=== PATIENT | male | born 1960 | race Caucasian/White ===

== ENCOUNTER 2023-11-04 13:11 | Emergency (ER) | payer BC ==
[2023-11-04 14:19] LABS: INR 1.06; PROTHROMBIN TIME 11.3 SECONDS (9.7-12.0)
[2023-11-04 14:22] LABS: BASOPHILS PERCENT AUTO 0.2 % (0.0-1.0); HEMATOCRIT 44.1 % (42.0-52.0); HEMOGLOBIN 14.8 gm/dl (14.0-18.0); IMMATURE GRAN ABSOLUTE AUTO 0.05 K/mm3 (0.00-0.05); IMMATURE GRAN PERCENT AUTO 0.4 % (0.0-0.4); LYMPHOCYTES ABSOLUTE AUTO 1.2 K/mm3 (1.0-4.8); LYMPHOCYTES PERCENT AUTO 9.4 % (24.0-44.0); MEAN CORPUSCULAR HEMOGLOBIN 30.3 pg (28.0-32.0); MEAN CORPUSCULAR HGB CONC 33.6 g/dl (32.0-36.0); MEAN CORPUSCULAR VOLUME 90.2 fl (83.0-99.0); MEAN PLATELET VOLUME 8.9 fl (9.4-12.4); MONOCYTES ABSOLUTE AUTO 0.5 K/mm3 (0.0-0.8); MONOCYTES PERCENT AUTO 4.1 % (0.0-8.0); NEUTROPHILS ABSOLUTE AUTO 10.6 K/mm3 (1.8-7.7); NEUTROPHILS PERCENT AUTO 85.9 % (41.0-71.0); PLATELET COUNT,PLT 357 K/mm3 (150-400); RED BLOOD CELL COUNT 4.89 M/mm3 (4.52-5.90); WHITE BLOOD CELL COUNT,WBC 12.29 K/mm3 (3.9-11.3)
[2023-11-04 14:30] LABS: APPEARANCE,URINE CLEAR (Clear); BILIRUBIN,URINE NEGATIVE (Negative); COLOR,URINE YELLOW (Yellow); GLUCOSE,URINE 2+ (Negative); KETONES,URINE 1+ (Negative); LEUKOCYTE ESTERASE,URINE NEGATIVE (Negative); NITRITE,URINE NEGATIVE (Negative); OCCULT BLOOD,URINE NEGATIVE (Negative); PROTEIN,URINE 2+ (Negative); UROBILINOGEN,URINE 0.2 (0.2-1.0)
[2023-11-04 14:33] LABS: LACTIC ACID 1.5 mmol/L (0.4-2.0)
[2023-11-04 14:34] LABS: A/G RATIO 1.2 (1-2); ALBUMIN 3.7 g/dl (3.4-5.0); ANION GAP 16.1 (5-15); BILIRUBIN TOTAL 0.9 mg/dL (0.2-1.0); BUN/CREATININE RATIO 18.2 (14-18); CALCIUM 8.9 mg/dL (8.5-10.1); CREATININE 1.1 mg/dL (0.7-1.3); EST CRCL DRUG DOSING (CG) 65.93 mL/min; MAGNESIUM 1.8 mg/dL (1.8-2.4); POTASSIUM,K 4.1 mEq/L (3.5-5.1); PROTEIN TOTAL,TP 6.8 g/dl (6.4-8.2)
[2023-11-04 15:03] LABS: D-DIMER QUANTITATIVE 0.91 mg/L (0.19-0.50)
[2023-11-04 15:17] LABS: BACTERIA,URINE FEW /hpf (FEW); MUCUS,URINE FEW /hpf (FEW); RBC,URINE 0-5 /hpf (0-5); SQUAMOUS EPITHELIAL CELLS,UR 0-5 /hpf (0-5); WBC,URINE 0-5 /hpf (0-5)
[2023-11-04] MEDS: Sodium Chloride 0.9% 45 ML IV SCH (15:45)
[2023-11-04] MEDS: Sodium Chloride 0.9% 10 ML Syringe FLUSH PRN (15:45)
[2023-11-04] MEDS: Iopamidol 755 Mg/ML 100 ML Bottle IVPUSH ONE (15:45)
[2023-11-04] MEDS: Furosemide 40 MG/4 ML VIAL IVPUSH ONE (15:58)
[2023-11-04] MEDS: Diltiazem 25 MG/5 ML SDV IVPUSH ONE (16:19)
[2023-11-04] MEDS: Diltiazem 125 MG in Sodium Chloride 0.9% 100 ML IV SCH (16:56)
[2023-11-04] MEDS: cefTRIAXone 1 GM in Sodium Chloride 0.9% 100 ML IV ONE (16:59)
[2023-11-04] MEDS: Sodium Chloride 0.9% 1,000 ML IV ONE (17:28)
[2023-11-04 20:34] VITALS: BP 143/88; PULSE 99
== END 2023-11-04 20:30 ==
LOC: JD.ED 13:11
DX: J18.9 Pneumonia, unspecified organism (principal); I48.91 Unspecified atrial fibrillation; I11.0 Hypertensive heart disease with heart failure; I50.9 Heart failure, unspecified; E78.5 Hyperlipidemia, unspecified; Z87.891 Personal history of nicotine dependence; E11.9 Type 2 diabetes mellitus without complications; Z79.899 Other long term (current) drug therapy; Z79.84 Long term (current) use of oral hypoglycemic drugs; Z88.5 Allergy status to narcotic agent; Z86.16 Personal history of COVID-19
CPT/HCPCS: 36415; 71045; 71275; 80053; 81001; 83605; 83690; 83735; 83880; 84484; 85025; 85379; 85610; 87040; 93005; 96365; 96366; 96368; 96375; 96376; 99285; J0696; J1940; J3490; J7030; Q9967; 93010

== ENCOUNTER 2024-06-18 20:57 | Inpatient (IN) | payer BC ==
[2024-06-18 22:34] LABS: BASOPHILS PERCENT AUTO 0.5 % (0.0-1.0); EOSINOPHILS ABSOLUTE AUTO 0.3 K/mm3 (0.0-0.4); HEMOGLOBIN 13.9 gm/dl (14.0-18.0); IMMATURE GRAN ABSOLUTE AUTO 0.02 K/mm3 (0.00-0.05); IMMATURE GRAN PERCENT AUTO 0.2 % (0.0-0.4); LYMPHOCYTES ABSOLUTE AUTO 2.1 K/mm3 (1.0-4.8); LYMPHOCYTES PERCENT AUTO 24.8 % (24.0-44.0); MEAN CORPUSCULAR HEMOGLOBIN 29.4 pg (28.0-32.0); MEAN CORPUSCULAR HGB CONC 33.9 g/dl (32.0-36.0); MEAN CORPUSCULAR VOLUME 86.9 fl (83.0-99.0); MEAN PLATELET VOLUME 8.3 fl (9.4-12.4); MONOCYTES ABSOLUTE AUTO 0.7 K/mm3 (0.0-0.8); MONOCYTES PERCENT AUTO 8.1 % (0.0-8.0); NEUTROPHILS ABSOLUTE AUTO 5.2 K/mm3 (1.8-7.7); NEUTROPHILS PERCENT AUTO 63.4 % (41.0-71.0); PLATELET COUNT,PLT 325 K/mm3 (150-400); RED BLOOD CELL COUNT 4.72 M/mm3 (4.52-5.90); WHITE BLOOD CELL COUNT,WBC 8.27 K/mm3 (3.9-11.3)
[2024-06-18 23:06] LABS: A/G RATIO 1.2 (1-2); ANION GAP 12.7 (5-15); BILIRUBIN TOTAL 0.3 mg/dL (0.2-1.0); BUN/CREATININE RATIO 11.5 (14-18); CALCIUM 8.6 mg/dL (8.5-10.1); CREATININE 1.3 mg/dL (0.7-1.3); EST CRCL DRUG DOSING (CG) 55.08 mL/min; POTASSIUM,K 3.7 mEq/L (3.5-5.1); PROTEIN TOTAL,TP 7.4 g/dl (6.4-8.2)
[2024-06-18] MEDS: Diltiazem 25 MG/5 ML SDV IVPUSH ONE (23:24)
[2024-06-18] MEDS: Sodium Chloride 0.9% 10 ML Syringe FLUSH PRN (23:25)
[2024-06-18 23:26] LABS: TSH 7.183 uIU/mL (0.358-3.74)
[2024-06-18 23:42] LABS: APPEARANCE,URINE CLEAR (Clear); BILIRUBIN,URINE NEGATIVE (Negative); COLOR,URINE LIGHT YELLOW (Yellow); GLUCOSE,URINE 1+ (Negative); KETONES,URINE NEGATIVE (Negative); LEUKOCYTE ESTERASE,URINE 1+ (Negative); NITRITE,URINE NEGATIVE (Negative); OCCULT BLOOD,URINE NEGATIVE (Negative); PROTEIN,URINE NEGATIVE (Negative); UROBILINOGEN,URINE 0.2 (0.2-1.0)
[2024-06-18 23:48] LABS: T4 FREE 1.04 ng/dL (0.76-1.46)
[2024-06-18 23:59] LABS: BACTERIA,URINE NOT SEEN /hpf (FEW); MUCUS,URINE NOT SEEN /hpf (FEW); RBC,URINE 0-5 /hpf (0-5); SQUAMOUS EPITHELIAL CELLS,UR 0-5 /hpf (0-5); WBC,URINE 0-5 /hpf (0-5)
[2024-06-19] MEDS: Sodium Chloride 0.9% 500 ML IV ONE (00:01)
[2024-06-19] MEDS: Diltiazem 25 MG/5 ML SDV IVPUSH ONE (02:36)
[2024-06-19] MEDS: Diltiazem 125 MG in Sodium Chloride 0.9% 100 ML IV SCH (05:15)
[2024-06-19] MEDS ORDERED: Acetaminophen 325 MG Tab PO PRN (08:50)
[2024-06-19] MEDS: Diltiazem IR 30 MG Tab PO SCH (09:26)
[2024-06-19] MEDS ORDERED: 50% Dextrose in Water 50 ML Syringe IVPUSH PRN (20:00)
[2024-06-19] MEDS: Furosemide 20 MG Tab PO SCH (20:07)
[2024-06-19] MEDS: Apixaban 5 MG Tab PO SCH (20:07)
[2024-06-19] MEDS: Insulin Lispro 100 Unit/ML 3 ML KwikPen SUBCUT SCH (20:10)
[2024-06-19] MEDS ORDERED: Non-Formulary Medication 1 Each (Sacubitril/Valsartan 1 EACH Tablet) PO SCH (21:00)
[2024-06-20] MEDS: Rosuvastatin 10 MG Tab PO SCH (08:30)
[2024-06-20] MEDS: Empagliflozin 10 MG Tab PO SCH (08:30)
[2024-06-20] MEDS: Metoprolol Succinate 25 MG Tab.ER PO SCH (11:00)
[2024-06-20] MEDS: Metoprolol Succinate 25 MG Tab.ER PO ONE (11:59)
[2024-06-20 14:13] VITALS: BP 136/89; PULSE 94
== END 2024-06-20 13:56 | disposition home or self-care (01) | DRG 201 ==
LOC: JD.ED 20:57 → JD.ICU 06-19 08:50
PROVIDERS: ADMIT Family Medicine; ATTEND Family Medicine
DX: I48.92 Unspecified atrial flutter (principal); I50.30 Unspecified diastolic (congestive) heart failure; I48.91 Unspecified atrial fibrillation; G47.33 Obstructive sleep apnea (adult) (pediatric); E78.00 Pure hypercholesterolemia, unspecified; I11.0 Hypertensive heart disease with heart failure; K21.9 Gastro-esophageal reflux disease without esophagitis; E11.9 Type 2 diabetes mellitus without complications; Z79.4 Long term (current) use of insulin; Z88.5 Allergy status to narcotic agent
CPT/HCPCS: 36415; 71045; 71045-26; 80053; 81001; 82947; 83735; 83880; 84439; 84443; 84484; 85025; 87086; 87428-QW; 87651-QW; 93005; 93010; 96365; 96366; 96376; 99222; 99239; 99284; 99285-25; A9270-GY; J1815; J3490; J7030